=== PATIENT | male | born 1960 ===

== ENCOUNTER 2018-05-29 11:21 | Emergency (ER) | payer MEDICARE ==
[2018-05-29 11:43] VITALS: O2SAT 100
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
[2018-05-29] MEDS ORDERED: TORAdol 30 mg Injection IM ONE (11:56)
[2018-05-29] MEDS ORDERED: TORAdol 30 mg Injection ONE (12:20)
[2018-05-29 12:27] LABS: BASOPHIL % 0.6 % (0.0-0.4); Basophil (Absolute #) 0.04 (0-0.4); Eosinophil % 2.1 % (0.00-5.0); Eosinophil (Absolute #) 0.15 (0-0.5); Granulocyte Absolute (ANC) 3.84 (1.4-6.9); Hematocrit 34.1 % (42-50); Hemoglobin 11.3 gm/dl (12.5-18.0); Lymphocyte (Absolute #) 2.42 (1.0-4.6); Lymphocytes % 34.6 % (24.0-44.0); Mean Cell Volume 98.8 fl (78-100); Mean Corpuscular Hemoglobin 32.7 pg (26-32); Mean Corpuscular Hgb Concent. 33.1 g/dl (32-36); Mean Platelet Volume 9.7 fl (6-9.5); Monocyte (Absolute #) 0.54 (0.0-1.3); Monocytes % 7.7 % (0.0-12.0); Platelet Count 280 K/mm3 (150-450); Red Blood Count 3.45 M/mm3 (4.1-5.6)
--- NOTE | 2018-05-29 12:39 | XRAY ---
Indication: Chronic pain. No known injury. Comparison: None 2 views of the right lower leg demonstrates osteopenia, moderate/advanced knee degenerative arthropathy, and old proximal tibial fracture with intact lateral plate/screws. No other bony, articular, or soft tissue abnormalities.
--- NOTE | 2018-05-29 12:42 | XRAY ---
Indication: Chronic pain. No acute injury. Comparison: None 2 views of the right femur demonstrates osteopenia, old femur shaft fracture with orthopedic wires, mild hip degenerative arthropathy, moderate/advanced knee degenerative arthropathy, partially visualized old proximal tibial fracture with lateral plate/screws, and mild scattered vascular calcifications. No other bony, articular, or soft tissue abnormalities.
[2018-05-29 12:54] VITALS: BP 135/80; PULSE 52
--- NOTE | 2018-05-29 20:18 | XRAY ---
Indication: Right hip and calf pain. 2-dimensional sonogram and color Doppler imaging of the major venous vessels of the right leg was performed. Comparison: None No thrombus seen in the examined deep venous vessels of the right leg including greater saphenous vein. Veins demonstrate normal compressibility. Venous waveforms are normal with and without augmentation. Impression: Right leg negative for DVT. Comment: Preliminary interpretation was made by [facility]. No discrepancy.
== END 2018-05-29 14:45 | disposition home or self-care (01) ==
LOC: ED 11:21
DX: M79.604 Pain in right leg (principal); R70.0 Elevated erythrocyte sedimentation rate
CPT/HCPCS: 36415; 73552; 73590; 85025; 85652; 93971; 96372; 99284; J1885